=== PATIENT | female | born 1940 | race Caucasian/White ===

== ENCOUNTER 2016-05-15 11:10 | Emergency (ER) | payer MEDICARE, OTHER ==
[2016-05-15] MEDS ORDERED: CEPHALEXIN 250 MG CAPSULE PO STA (12:24)
[2016-05-15] MEDS ORDERED: CEPHALEXIN 250 MG CAPSULE PO ONE (12:33)
== END 2016-05-15 15:30 | disposition home or self-care (01) ==
DX: L03.115 Cellulitis of right lower limb (principal); Z85.42 Personal history of malignant neoplasm of other parts of uterus; I89.0 Lymphedema, not elsewhere classified; M19.90 Unspecified osteoarthritis, unspecified site
CPT/HCPCS: 93971; 99283; A9270

== ENCOUNTER 2016-07-22 12:05 | Outpatient (CLI) | payer MEDICARE, OTHER | END 2016-07-22 12:06 | disposition critical access hospital (66) | LOC: EMS 12:05 | PROVIDERS: ATTEND Surgery | DX: R10.9 Unspecified abdominal pain (principal) | CPT/HCPCS: A0425; A0427 ==

== ENCOUNTER 2016-07-22 12:39 | Emergency (ER) | payer MEDICARE, OTHER ==
[2016-07-22] MEDS ORDERED: SODIUM CHLORIDE 0.9% 1,000 ML IV ONE (12:58)
[2016-07-22] MEDS ORDERED: FAMOTIDINE 20 MG/50 ML 50 ML IV ONE (12:58)
[2016-07-22] MEDS ORDERED: FAMOTIDINE 20 MG/2 ML VIAL ONE (13:02)
--- NOTE | 2016-07-22 13:04 | ED Physician Documentation ---
History of Present Illness - Stated complaint Stated Complaint: ABD PX - Chief complaint Chief Complaint: Abd Pain - Additonal information Additional information: hx from pt 76 female hx uterine cancer s/p surgery chemo and radiation since tx ended last winter she developed cellulitis and was txed with antibiotics and since then has had diarrhea but over the last week she has had upper abd pain, some blood in diarrhea and change of odor now NV - per EMS looked like coffee grounds pt describes abd pain and a crescendo cramp she has seen PMD this week and stool sample collected and sent for c diff, rec simethicone and probitoic, pt has a CT and PET were ordered for this week but not done yet, pt has an appt with her oncologist Sunday after CT and PET sx worse today no fever CP cough Review of Systems Constitutional: denies: Fever, Chills Cardiac: denies: Chest pain / pressure Respiratory: denies: Dyspnea GI: reports: Abdominal Pain, Nausea, Vomiting, Diarrhea, Hematemesis, Bloody / black stool : reports: Hysterectomy. 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 Psych: Anxiety Musculoskeletal: Osteoporosis, Chronic back pain - Past Surgical History Past Surgical History: Yes /DIELECTRIC PRESS OPERATOR: Hysterectomy, Oophrectomy HEENT: Tonsil/Adenoidectomy Derm: Skin cancer surgery - Present Medications Home Medications: Ambulatory Orders Medication Instructions Recorded Confirmed Alprazolam 0.125 - 0.25 mg PO Q4H PRN 07/22/16 07/22/16 Dicyclomine [Bentyl] 10 mg PO Q6H PRN 07/22/16 07/22/16 Diphenoxylate HCl/Atropine 1 - 2 tab PO QID PRN 07/22/16 07/22/16 [Diphenoxylate-Atrop 2.5-0.025] Saccharomyces Boulardii [Florastor] 250 mg PO DAILY 07/22/16 Simethicone [Gas Relief] 125 mg PO QID PRN 07/22/16 07/22/16 - Allergies Allergies/Adverse Reactions: Allergies Allergy/AdvReac Type Severity Reaction Status Date / Time acetaminophen [From Tylenol] AdvReac Unknown Verified 07/22/16 12:47 elastic Allergy Unknown Uncoded 07/22/16 12:47 - Social History Does the pt smoke?: No Smoking Status: Never smoker Does the pt drink ETOH?: Yes Does the pt have substance abuse?: No - Immunizations Immunizations are current?: Yes - POLST Patient has POLST: No PD ED PE NORMAL - Vitals Vital signs reviewed: Yes - General General: Alert and oriented X 3 - HEENT HEENT: PERRL - Neck Neck: Supple, no meningeal sign - Cardiac Cardiac: RRR - Respiratory Respiratory: No respiratory distress, Clear bilaterally - Abdomen Abdomen: Soft, Other (TTP mid to upper abd no pulsatile mass, no lower abd TTP) - Derm Derm: Normal color - Neuro Neuro: Alert and oriented X 3 Results - Vitals Vitals: Vital Signs - 24 hr 07/22/16 07/22/16 07/22/16 12:40 14:45 15:44 Temperature 36.7 C Heart Rate 67 76 67 Respiratory 20 18 20 Rate Blood Pressure 136/71 H 146/85 H 141/58 H O2 Saturation 96 96 92 07/22/16 16:18 Temperature Heart Rate 75 Respiratory 20 Rate Blood Pressure 142/63 H O2 Saturation Oxygen O2 Source Room air - EKG (time done) 1308 Rate: Rate (enter#) Rhythm: NSR (64) Peerless: Normal Intervals: Normal NV Ischemia: Non specific changes - Labs Labs: Laboratory Tests 07/22/16 07/22/16 07/22/16 12:57 13:32 13:32 WBC 6.1 RBC 3.26 L Hgb 10.8 L Hct 31.5 L MCV 96.5 MCH 33.1 H MCHC 34.3 RDW 13.2 Plt Count 197 MPV 7.0 L Neut # 5.3 Lymph # 0.4 L [place] # 0.3 Eos # 0.0 Baso # 0.0 Absolute Nucleated RBC 0.00 Nucleated RBCs 0.0 Sodium 137 Potassium 3.7 Chloride 101 Carbon Dioxide 24 Anion Gap 12.0 BUN 15 Creatinine 0.7 Estimated GFR (MDRD) 81 L Glucose 122 H Calcium 9.2 Total Bilirubin 0.4 AST 21 ALT 14 Alkaline Phosphatase 66 Total Protein 6.7 Albumin 3.6 Globulin 3.1 Albumin/Globulin Ratio 1.2 Lipase 12 L Blood Type A POSITIVE Antibody Screen NEGATIVE - Rads (name of study) CT abd pelvis Radiology: See rad report (dilated colon to level of mid sigmoid where there is abrupt transition c/w large bowel obsturction, there is amorphous st density within region, ddx includes diffuse colonic thickening such as colitis or colon mass, fibrosis and or separate pelvic mass or fibrosis, trace ascites, mild to moderate bilateral hydro liekly 2/2 pelvic process, non calcified pulm nodules RLL, groundglass opacities RML ddx is atelectasis pneumonitis or infection) PD MEDICAL DECISION MAKING - ED course ED course: called clinic - no labs appear to have been ordered this week - no c diff result large bowel obstructions, possible due to recurrent mass, also could be inflammation 2/2 colitis such as c diff d/w surgeon Dr Stearns at [facility] and he feels pt should be trasnferred to [facility] where her oncology team is because with ascites and pulm nodules and possible mass on CT he suspects blockage is due to recurrent cancer and cannot be safely managed here at [facility] - see his consult called [facility] and spoke with Dr Blankenship who will accept pt in transfer - she req lactate (added on) NG tube (pt declines and stomach and small bowel decompressed on CT so unliekly to help), MPO IVF Departure - Departure Disposition: 02 Transfer Acute Care Hosp Clinical Impression: Intestinal obstruction Qualifiers: Intestinal obstruction type: unspecified Qualified Code(s): K56.60 - Unspecified intestinal obstruction Condition: Fair
[2016-07-22 13:34] LABS: ALBUMIN/GLOBULIN RATIO 1.2 (1.0-2.2); BILIRUBIN,TOTAL 0.4 mg/dL (0.2-1.0); CALCIUM 9.2 mg/dL (8.5-10.3); CREATININE 0.7 mg/dL (0.4-1.0); POTASSIUM 3.7 mmol/L (3.5-5.0); TOTAL PROTEIN 6.7 g/dL (6.7-8.2)
[2016-07-22 13:41] LABS: BASOPHILS % (AUTO) 0.4 %; HCT - HEMATOCRIT 31.5 % (37.0-47.0); HGB - HEMOGLOBIN 10.8 g/dL (12.0-16.0); LYMPHOCYTES # (AUTO) 0.4 10^3/uL (1.5-3.5); LYMPHOCYTES % (AUTO) 6.4 %; MEAN CORPUSCULAR HEMOGLOBIN 33.1 pg (27.0-31.0); MEAN CORPUSCULAR HGB CONC 34.3 g/dL (32.0-36.0); MEAN CORPUSCULAR VOLUME 96.5 fL (81.0-99.0); MONOCYTES # (AUTO) 0.3 10^3/uL (0.0-1.0); MONOCYTES % (AUTO) 5.3 %; NEUTROPHILS # (AUTO) 5.3 10^3/uL (1.5-6.6); NEUTROPHILS % (AUTO) 87.9 %; RED BLOOD COUNT 3.26 10^6/uL (4.20-5.40); RED CELL DISTRIBUTION WIDTH 13.2 % (12.0-15.0); UNCORRECTED WHITE BLOOD COUNT 6.1 x10^3/uL; WHITE BLOOD COUNT 6.1 x10^3/uL (4.8-10.8)
--- NOTE | 2016-07-22 14:45 | CT Preliminary Report ---
Exam: CT Abdomen/Pelvis W/O IMPRESSION: 1. Dilated colon to the level of the mid sigmoid where there is an abrupt transition consistent with a large bowel obstruction. There is somewhat amorphous soft tissue density within this region. Differ ential diagnosis includes diffuse colonic thickening such as from a severe colitis or colonic mass, f ibrosis and/or a separate pelvic mass with the given history of uterine cancer. 2. Trace ascites. 3. Mild to moderate bilateral hydronephrosis with transition in the pelvis, likely secondary to the p elvic process. 4. Non-calcified pulmonary nodules within the right lower lobe suspicious for metastatic disease in t his clinical setting. 5. Groundglass opacities in the right middle lobe. Differential diagnosis includes subsegmental atele ctasis, pneumonitis or infection. [facility] SITE ID: [id number]
--- NOTE | 2016-07-22 14:48 | CT Report ---
EXAM: CT ABDOMEN AND PELVIS EXAM DATE: 07/22/2016 01:55 PM. CLINICAL HISTORY: History of uterine cancer. Nausea and vomiting with mid upper abdominal pain. COMPARISONS: None. TECHNIQUE: Routine helical CT imaging was performed through the abdomen and pelvis. IV contrast: None . Enteric contrast: No. Reconstructions: Coronal and sagittal. In accordance with CT protocol optimization, one or more of the following dose reduction techniques w ere utilized for this exam: automated exposure control, adjustment of mA and/or KV based on patient s ize, or use of iterative reconstructive technique. FINDINGS: Lung Bases: Trace groundglass opacities within the right middle lobe. Multiple noncalcified pulmonary nodules within the right lower lobe, largest measuring 8 mm. Liver: Normal. No masses. Gallbladder/Bile Ducts: Unremarkable. Spleen: Normal. Pancreas: Moderate pancreatic atrophy. Adrenal Glands: Somewhat poorly defined without gross lesion. Kidneys: Right kidney is normal in contour with a 12 mm cyst. Mild to moderate right hydronephrosis. Mild to moderate left hydronephrosis extending to the level of the pelvis. Peritoneal Cavity/Bowel: Evaluation of the bowel is limited given the lack of intravenous or oral con trast. Stomach is decompressed and grossly unremarkable. The small bowel is decompressed with some jules rderline loops of distal small bowel and the pelvis which extends level of the ileocecal valve. The colon is markedly distended extending to the level of the pelvis where there is abrupt transition at the level of the mid sigmoid (3, 64). At this level there is diffuse soft tissue density which is somewhat poorly defined on this unenhanced examination. There is trace ascites. Pelvic Organs: The bladder is grossly unremarkable. Somewhat amorphous soft tissue density within the mid to left pelvis (3, 66). Vasculature: Atherosclerosis without abdominal aortic aneurysm. Bones: Degenerative disk disease lumbar spine. Other: Mild anasarca. IMPRESSION: 1. Dilated colon to the level of the mid sigmoid where there is an abrupt transition consistent with a large bowel obstruction. There is somewhat amorphous soft tissue density within this region. Differ ential diagnosis includes diffuse colonic thickening such as from a severe colitis or colonic mass, f ibrosis and/or a separate pelvic mass with the given history of uterine cancer. 2. Trace ascites. 3. Mild to moderate bilateral hydronephrosis with transition in the pelvis, likely secondary to the p elvic process. 4. Non-calcified pulmonary nodules within the right lower lobe suspicious for metastatic disease in t his clinical setting. 5. Groundglass opacities in the right middle lobe. Differential diagnosis includes subsegmental atele ctasis, pneumonitis or infection. [facility] Referring Provider Line: [phone] SITE ID: [id number]
[2016-07-22] MEDS ORDERED: HYDROmorphone 1 MG/ML SYRINGE IVP STA ×4 (14:49→18:58)
[2016-07-22] MEDS ORDERED: HYDROmorphone 1 MG/ML SYRINGE ONE ×3 (14:50→19:21)
[2016-07-22] MEDS ORDERED: D5.45NS W/20 MEQ KCL 1,000 ML IV SCH (19:00)
[2016-07-22 19:46] VITALS: BP 155/51
== END 2016-07-22 20:51 | disposition short-term general hospital (02) ==
LOC: EDUNIT# → ED 12:39
DX: K56.60 Unspecified intestinal obstruction (principal); Z85.42 Personal history of malignant neoplasm of other parts of uterus; Z92.21 Personal history of antineoplastic chemotherapy; Z92.3 Personal history of irradiation; Z90.710 Acquired absence of both cervix and uterus
CPT/HCPCS: 36415; 74176; 80053; 83605; 83690; 85025; 86850; 86900; 86901; 93005; 93010; 96374; 96375; 96376; 99284; J1170

== ENCOUNTER 2016-08-13 17:06 | Emergency (ER) | payer MEDICARE, OTHER ==
[2016-08-13 17:13] VITALS: BP 144/59
--- NOTE | 2016-08-13 17:24 | ED Physician Documentation ---
History of Present Illness - Stated complaint Stated Complaint: FEMALE - Chief complaint Chief Complaint: General - History obtained from History obtained from: Patient (She has known endometrial cancer and recently had bowel obstruction with surgery and left-sided ostomy placement. 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: Hysterectomy, Oophrectomy HEENT: Tonsil/Adenoidectomy Derm: Skin cancer surgery - Present Medications Home Medications: Ambulatory Orders Medication Instructions Recorded Confirmed Alprazolam 0.125 - 0.25 mg PO Q4H PRN 07/22/16 08/13/16 Dicyclomine [Bentyl] 10 mg PO Q6H PRN 07/22/16 08/13/16 Diphenoxylate HCl/Atropine 1 - 2 tab PO QID PRN 07/22/16 08/13/16 [Diphenoxylate-Atrop 2.5-0.025] Saccharomyces Boulardii [Florastor] 250 mg PO DAILY 07/22/16 08/13/16 Simethicone [Gas Relief] 125 mg PO QID PRN 07/22/16 08/13/16 oxyCODONE ER [OxyCONTIN] 5 mg PO DAILY 08/13/16 08/13/16 - Allergies Allergies/Adverse Reactions: Allergies Allergy/AdvReac Type Severity Reaction Status Date / Time acetaminophen [From Tylenol] AdvReac Unknown Verified 07/22/16 12:47 elastic Allergy Unknown Uncoded 07/22/16 12:47 - Social History Does the pt smoke?: No Smoking Status: Never smoker Does the pt drink ETOH?: Yes Does the pt have substance abuse?: No - Immunizations Immunizations are current?: Yes - POLST Patient has POLST: No PD ED PE NORMAL - Vitals Vital signs reviewed: Yes - General General: Alert and oriented X 3, No acute distress - Abdomen Abdomen: Soft, Non tender, Other (Left-sided colostomy, the stoma looks fine, the appliance is a little dehisced on the left side with some leakage.) - Back Back: No CVA TTP, No spinal TTP - Neuro Neuro: Alert and oriented X 3, Normal speech - Psych Psych: Normal mood, Normal affect Results - Vitals Vitals: Vital Signs - 24 hr 08/13/16 17:11 Temperature 36.6 C Heart Rate 76 Respiratory 16 Rate Blood Pressure 144/59 H O2 Saturation 97 Oxygen O2 Source Room air PD MEDICAL DECISION MAKING - ED course ED course: RN replaced the appliance Departure - Departure Disposition: 01 Home, Self Care Clinical Impression: Complication of ostomy Condition: Good Record reviewed to determine appropriate education?: Yes Instructions: Ostomy Pouch Change Dc Comments: Your blood pressure was elevated today on check into the emergency department. This does not mean that you have hypertension, it is a common phenomenon to come to the emergency department and have elevated blood pressure. I recommend that she see her primary care physician within the week to have it rechecked when you are feeling better.
== END 2016-08-13 17:54 | disposition home or self-care (01) ==
LOC: ED 17:06
DX: K94.09 Other complications of colostomy (principal); R03.0 Elevated blood-pressure reading, without diagnosis of hypertension; Z85.89 Personal history of malignant neoplasm of other organs and systems
CPT/HCPCS: 99282; 99283

== ENCOUNTER 2016-08-18 14:36 | Outpatient (CLI) | payer MEDICARE, OTHER ==
[2016-08-18 14:54] LABS: BASOPHILS % (AUTO) 0.7 %; EOSINOPHILS # (AUTO) 0.2 10^3/uL (0.0-0.7); EOSINOPHILS % (AUTO) 5.3 %; HCT - HEMATOCRIT 28.8 % (37.0-47.0); HGB - HEMOGLOBIN 9.7 g/dL (12.0-16.0); LYMPHOCYTES # (AUTO) 0.6 10^3/uL (1.5-3.5); LYMPHOCYTES % (AUTO) 14.6 %; MEAN CORPUSCULAR HEMOGLOBIN 32.4 pg (27.0-31.0); MEAN CORPUSCULAR HGB CONC 33.8 g/dL (32.0-36.0); MEAN CORPUSCULAR VOLUME 95.9 fL (81.0-99.0); MEAN PLATELET VOLUME 6.7 fL (7.9-10.8); MONOCYTES # (AUTO) 0.5 10^3/uL (0.0-1.0); MONOCYTES % (AUTO) 11.9 %; NEUTROPHILS % (AUTO) 67.5 %; NUCLEATED RED BLOOD CELLS AUTO 0.1 /100WBC; RED CELL DISTRIBUTION WIDTH 13.8 % (12.0-15.0); UNCORRECTED WHITE BLOOD COUNT 4.4 x10^3/uL; WHITE BLOOD COUNT 4.4 x10^3/uL (4.8-10.8)
[2016-08-18 15:22] LABS: ALBUMIN/GLOBULIN RATIO 0.9 (1.0-2.2); BILIRUBIN,TOTAL 0.4 mg/dL (0.2-1.0); BUN - BLOOD UREA NITROGEN 10 mg/dL (6-20); CALCIUM 8.8 mg/dL (8.5-10.3); CARBON DIOXIDE - CO2 32 mmol/L (21-32); CHLORIDE 98 mmol/L (101-111); CREATININE 0.9 mg/dL (0.4-1.0); GFR - MDRD 61 (>89); GLUCOSE 122 mg/dL (70-100); POTASSIUM 3.4 mmol/L (3.5-5.0); SODIUM 137 mmol/L (135-145); TOTAL PROTEIN 6.7 g/dL (6.7-8.2)
== END 2016-08-18 14:37 | disposition home or self-care (01) ==
LOC: LAB 14:36
PROVIDERS: ATTEND Obstetrics & Gynecology
DX: C54.9 Malignant neoplasm of corpus uteri, unspecified (principal); R91.1 Solitary pulmonary nodule
CPT/HCPCS: 36415; 80053; 85025; 86304

== ENCOUNTER 2016-08-21 10:45 | Outpatient (CLI) | payer MEDICARE, OTHER ==
--- NOTE | 2016-08-21 23:27 | CONSULTATION NOTE ---
Palliative Care Consultation - Referral Referring Provider: Nallely Campos PA-C Time of Visit: 10:45-12:15 Referral setting: Home (Patient seen in her home setting secondary to it is a considerable and taxing effort to leave the home, to evaluate symptom burden in context of home setting and facilitate family conference.) Referral Reason: Depression - Information Sources Records Reviewed: RN notes reviewed, Old records reviewed Exam limitations: Clinical condition (patient presents with anxiety and depressed mood) - History of Present Illness Brief History of Present Illness: This is a 76 year old woman with endometrial cancer diagnosed last year, underwent a hysterectomy/BSO and omental biopsy, she underwent 6 cycles of carbo /taxol which she tolerated fairly well with residual neuropathy. She then underwent radiation which was much more difficult with her with severe diarrhea and fatigue. She had persistent diarrhea and lymphadema at that time only on right leg. She completed her radiation in February. She also has know lung mets. Has been in survellience, and due to have scans this last month, but in meantime developed severe pain and presented with large bowel obstruction for which she had surgery with mini-lap including a diverting loop colostomy. She also has bilat. hyronephrosis. She had an infiltrating mass in the left hemipelvis causing infiltration/encasement of sigmoid colon. She had 750 mls of ascitic fluid. She was hospitalized at [facility] 07/22-07/27. She has had a slow recovery including distress with new colostomy management, fatigue, development of bilateral lower extremity lymphadema, anorexia, exacerbation of anxiety and fatigue. She does understand she has limited life expectancy, is expecting to receive Avastin, but is overwhelmed with implications and her ongoing functional decline. 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: Uterine cancer : reports: Incontinence, Frequency (with initiation of furosemide) HEENT: reports: Chronic hearing loss Psych: reports: Depression, Anxiety Musculoskeletal: reports: Osteoporosis, Chronic back pain Derm: reports: Other (recent surgical incision) MRSA Hx?: No - Past Surgical History /PLUG AND MOLD FINISHER: reports: Hysterectomy, Oophrectomy, Other (colostomy) HEENT: reports: Tonsil/Adenoidectomy Derm: reports: Skin cancer surgery - Substance History Use: Uses substance without health or social issues: Alcohol (daily glass of wine) Social History - Living Situation Living arrangement: At home Living Situation: With spouse/s.o. Support System: Has many support components of team, has weekly counseling, massage, has had accupuncture, has two daughter. Is supported by [facility], and currently HH for colostomy teaching and support. Family History - Family History Family History: Mother: (mother at 66 from intestinal cancer), Father: Family History Comment/Other: lost sibling in accident at age 7 Medications/Allergies - Medications Home Medications: Ambulatory Orders Medication Instructions Recorded Confirmed Alprazolam 0.125 - 0.25 mg PO TID PRN 07/22/16 08/21/16 Furosemide 20 mg PO DAILY 08/21/16 08/21/16 Loperamide [Imodium] 2 mg PO Q4HR PRN MDD 16 mg 08/21/16 08/21/16 Mirtazapine 7.5 mg PO DAILY 08/21/16 08/21/16 Ondansetron HCl [Zofran] 8 mg PO TID PRN 08/21/16 08/21/16 Potassium Chloride 20 meq PO DAILY 08/21/16 08/21/16 Prochlorperazine Maleate 10 mg PO Q6HR PRN 08/21/16 08/21/16 [Compazine] oxyCODONE [Roxicodone] 5 mg PO Q4HR PRN MDD 20 mg 08/21/16 08/21/16 - Allergies Allergies/Adverse Reactions: Allergies Allergy/AdvReac Type Severity Reaction Status Date / Time acetaminophen [From Tylenol] AdvReac Unknown Verified 07/22/16 12:47 elastic Allergy Unknown Uncoded 07/22/16 12:47 Review of Systems - Constitutional Constitutional: reports: Fatigue, Weakness, Poor appetite, Weight loss - Eyes Eyes: denies: Corrective lenses - Ears, Nose & Throat Ears, Nose & Throat: reports: Hearing loss, Hearing aids - Cardiovascular Cariovascular: reports: Decr. exercise tolerance. denies: Chest pain - Respiratory Respiratory: reports: SOB with exertion. 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) - Psychiatric Psychiatric: reports: Depression, Anxiety - Endocrine Endocrine: reports: Intolerance to cold - Hematologic/Lymphatic Hematologic/Lymphatic: reports: Anemia - All Other Systems All Other Systems: reports: Other (patient with lymphadema on right from first dx., now bilateraly and severely limiting) Physical Examination - Vital Signs Temperature: 97.4 C Pulse Rate: 66 Respiratory Rate: 16 O2 Saturation: 96 (RA at rest) Blood Pressure: 132/76 - Physical Exam General Appearance: positive: Mild distress, Anxious, Cachetic Eyes Bilateral: positive: Normal inspection ENT: positive: Dry mucous membranes Neck: positive: Trachea midline Respiratory: positive: Breath sounds nml Cardiovascular: positive: Regular rate & rhythm Abdomen: positive: Non-tender, Nml bowel sounds, Other (taut lymphadema/ swelling in lower abdominal area; stoma with slight swelling rising about 1.5 inches into the pouch, pink and good circulation, moist). negative: No distention Skin: positive: Pallor, Dryness Extremities: positive: Pedal edema (taut lower extremety edema extending up into thigh) Neurologic/Psychiatric: positive: Oriented x3, Weakness, Depressed mood/affect Palliative Care - POLST Patient has POLST: No Pain: Pain improved, Location (lower abdominal area), Severity (mild), Pattern ( persistent, does feel oxycodone wearing off at 4-5 hours) Drowsiness: Mild (1-3) (complains more of severe fatigue, fluctuating energy levels) Nausea: None Anxiety: Severe (7-10) (Describes as "nervous condition", butterflies in stomach , has longstanding history with anxiety but has exacerbated over last several weeks) Dyspnea: Mild (1-3) (with exertion) Anorexia: Moderate (4-6), Weight loss (Reports some early satiety, does not feel like eating) Insomnia: Sleeps well Constipation: No Feelings of wellbeing/Perceived Quality of Life: Worsening Performance Status: Previous level of function prior to this episode [patient had some functional decline, but independent in adls]. Current level of functioning [Fatgues easily , receiving some support with bathing, endurance is impacted]. Palliative Care Performance Status [60%]. - Palliative Care Discussion: Surrogate decision maker []. Patient/Family understanding of the illness [patient understanding limited life expectancy with 2-5 months, after chemotherapy if effective extended several months]. Information preferences [ Patient very anxious, unclear best approach]. Most important goals [Patient trying to define]. Patient/Family concerns [ concerned patient giving up before really has given post surgery time]. Family conference [Very much (both) wanting to tell their story, discussed because of list of concerns will address advanced care directives at tnext visit. Addressed questions regarding hospice, reviewed if in active treatment this is not congruent with hospice philosophy, but the role of palliative care is to support them during this time of active treatment until either by choice or by disease time to transfer to hospice. Patient's goal to address her current perception of very poor QOL, and emotions of being scared around dying.]. Results - Lab Results Lab results reviewed: Yes Lab and Imaging Results: Potassium 3.4 Impression and Recommendations - Palliative Care Impression: This is a 76 year old woman with newly recurrent endometrial cancer resulting in a large bowel obstruction secondary to mass, lung nodules probably mets, and functional decline. She has high symptom burden including lymphadema bilat/ abdominal, anxiety, depression and pain. She has adequate social support, but exhibiting caregiver fatigue. Goal to improve nurtitional/functional status to tolerate avastin. Recommendations/Counseling Done: 1. Pain of neoplastic origin, located lower pelvic area, controlled with current regimen of oxycodone 5 mg 4 x day. Unclear of pain acute in nature as well from surgery, if remains persistent in nature would recommend transitioning to Fentanyl 12 mcg daily, will see how she does over these next few weeks. Rx for oxycodone written. 2. Depression. Patient very "scared" and with persistant feelings of helplessness and hopelessness. Discussed different possibilities, with anorexia/ weight loss, will start her on mirtazipine 15 mg 1/2 tab daily and increase to one tab if tolerated after one week. Has counselor sees on weekly basis. 3. Generalized anxiety disorder poorly controlled. Hoping in addressing depression may be of help. Uses alprazalom 1-2 times a a day with good relief. Education on anxiety disorder provided to patient per request. 4. Lymphadema, LE/abdominal. Has been to [facility] for managment of right leg. has a variety of pressure stockings, remain either anxious or confused as "what to do". Spoke to [facility], can see her at least once, with many other things going on may be enough though focal point of patient 's distress. Has capped out her PT benefits with lympadema program. In meantime has been instructed to use whatever compression she can tolerate and what can get on, agreed. Very much doubt diuretic is going to be of help, agreed to try one more week, will have HH nurse measure and weigh this week before discontinuing though does not like the incontinence it has causeed. 5. Advanced Care Planning, has some very extensive documents filled out several years ago, now that she has a terminal dx has many misgivings and questions. Agreed to defer further conversation until next visit. Did address questions related to DWD and hospice. Patient current goals are hoping to be able to get strong enough to tolerate targeted therapy. Agreed to facilitate follow up with navigator as had gotten confuse. Time Spent: 90 minutes with greater than 50% done in counseling for pain/anxiety/depression and coordination of care with HH/MAC.
== END 2016-08-21 10:46 | disposition home or self-care (01) ==
LOC: PC 10:45
PROVIDERS: ATTEND Nurse Practitioner Adult Health
DX: Z51.5 Encounter for palliative care (principal); G89.3 Neoplasm related pain (acute) (chronic); F32.9 Major depressive disorder, single episode, unspecified; F41.1 Generalized anxiety disorder; I89.0 Lymphedema, not elsewhere classified; C54.1 Malignant neoplasm of endometrium; R91.8 Other nonspecific abnormal finding of lung field; G62.9 Polyneuropathy, unspecified; T45.1X5D Adverse effect of antineoplastic and immunosuppressive drugs, subsequent encounter; Z79.891 Long term (current) use of opiate analgesic; Z93.3 Colostomy status; Z85.828 Personal history of other malignant neoplasm of skin; Z95.828 Presence of other vascular implants and grafts; Z92.3 Personal history of irradiation
CPT/HCPCS: 99345

== ENCOUNTER 2016-08-29 16:15 | Outpatient (CLI) | payer MEDICARE, OTHER ==
--- NOTE | 2016-08-29 20:23 | PROVIDER PROGRESS NOTE ---
Palliative Care Follow Up - Referral Referring Provider: Denice Campos PA-C Time of Visit: 2380-2457 Referral setting: Home (Patient seen in her home setting secondary it is a taxing and considerable effort for her to leave the home and to facilitate family conference and treatment plan.) Referral Reason: Metastatic endometrial cancer - Information Sources Records Reviewed: RN notes reviewed History obtained from: Patient, Family ( Jf, takes good notes and recall) Exam limitations: Clinical condition (Patient with some STM issues, but improved from last visit) - History of Present Illness Update Brief HPI Update: This is a 76 yeaer old woman with metastatic endometrial cancer with lung mets. Most recently she was hospitalized with the bowel obstruction, for which she had debulking surgery to include a diverting loop colostomy. She is about 4 weeks post-op, remains quite frail but improving. She understands she has limited life expectancy and is anxiously waiting on seeing Dr. Araujo next week for possible treatment with Avastin. Her most distressing symptom for her his the lymphadema, bilaterally up into the lower pelvic region as well. She was fairly overwhelmed last visit, appears improved today, voice modulated, ambulating up and down the stairs, engaging in the discussion and seems more interested in having a say in her approach to managing symptoms. Her pain is 2/ 10 dull and not distressful, anxiety remains problematic but improved, continues with depressive symptoms but appears to be responding to mirtazipine, has early satiety and anorexia but improved, but most distressing symptom is her "lethargy". Social History - Living Situation Living arrangement: At home Living Situation: With spouse/s.o. Support System: Many supportive friends and family, appears exhausted with caregiver fatigue and distress with managing care. Medications/Allergies - Medications Home Medications: Ambulatory Orders Medication Instructions Recorded Confirmed Alprazolam 0.125 - 0.25 mg PO TID PRN 07/22/16 08/29/16 Loperamide [Imodium] 2 mg PO Q4HR PRN MDD 16 mg 08/21/16 08/29/16 Mirtazapine 15 mg PO ACHS 08/21/16 08/29/16 Ondansetron HCl [Zofran] 8 mg PO TID PRN 08/21/16 08/29/16 Prochlorperazine Maleate 10 mg PO Q6HR PRN 08/21/16 08/29/16 [Compazine] oxyCODONE [Roxicodone] 5 mg PO Q4HR PRN MDD 20 mg 08/21/16 08/29/16 - Allergies Allergies/Adverse Reactions: Allergies Allergy/AdvReac Type Severity Reaction Status Date / Time acetaminophen [From Tylenol] AdvReac Unknown Verified 07/22/16 12:47 elastic Allergy Unknown Uncoded 07/22/16 12:47 Review of Systems - Constitutional Constitutional: reports: Fatigue (Describes specifically as lethargy), Weakness , Poor appetite, Weight loss (107 per RN this am) - Eyes Eyes: denies: Pain, Vision loss - Ears, Nose & Throat Ears, Nose & Throat: reports: Hearing loss - Cardiovascular Cariovascular: reports: Edema (Patient actually with lymphadema, did not like nor respond to diuretics, discontinued on own), Decr. exercise tolerance. denies: Chest pain - Respiratory Respiratory: reports: SOB with exertion. denies: Cough, Wheezing, SOB at rest - Gastrointestinal Gastrointestinal: reports: Poor appetite (describe early satiety "squeamishness " no vomiting, less output times 24 hours, starting. Has colostomy). 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 Has lower abdominal swelling, lymphatic in appearance as well.). denies: Blood clots, Recurrent infections - All Other Systems All Other Systems: reports: Reviewed and negative Physical Examination - Vital Signs Temperature: 98.9 C Pulse Rate: 72 Respiratory Rate: 18 Blood Pressure: 114/58 - Physical Exam General Appearance: positive: Mild distress, Anxious, Cachetic Eyes Bilateral: positive: Normal inspection ENT: positive: No signs of dehydration. negative: Oral lesions Neck: positive: Trachea midline Respiratory: positive: Breath sounds nml Cardiovascular: positive: Regular rate & rhythm Abdomen: positive: Nml bowel sounds, Other (colostomy, mild swelling lower abd) Skin: positive: Pallor, Dryness Extremities: positive: Pedal edema (Bilat lymphadema, some improvement though no change in measurements, taut. Cont difficulty with getting compression on) Neurologic/Psychiatric: positive: Oriented x3, Depressed mood/affect (improved from last visit, making eye contact, engaged, voice modulated) Palliative Care - POLST Patient has POLST: No Pain: Pain improved, Location (in lower pelvic region, diffuse, some discomfort with LE edema), Severity (2/10 at worst, has not escalated, when "late" or longer periods between pills not noting escalating pain. Occ. sharp shooting every few days), Pattern (dull and persistant but not awakening at night, greatest discomfort in am when getting going. Has been doing ATC dosing) Drowsiness: Comment (Describes baseline "lethargy" with low energy, doesn't describe as sedation, would like to address this as most problematic in her description) Nausea: Mild (1-3) ("squeamish" more noted after eating, escalated with management of colostomy) Anxiety: Moderate (4-6) (this is related to overwhelming feeling of facing unknown, decline, nightmares about dying, worried about poor quality of life. Taking alprazalom in am with some relief.) Dyspnea: None Anorexia: Moderate (4-6), Weight loss (doesn't feel like eating, early satiety. 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 Created a significant amount of tension between the two of them now with eating) Insomnia: Sleeps well Constipation: Yes, Opoid induced, Unmanaged (colostomy with no output for 24 hours, now starting to move) Feelings of wellbeing/Perceived Quality of Life: No change (Continues to feel QOL distressful, struggling with moving forward and approach to take) Performance Status: Patient appears stronger, is ambulating around house including the stairs with minimal difficulty. Was able to get out in garden yesterday. Fatigues easily. Needing assistance in shower for safety. managing IADLs with some hired assistance. Palliative Care Performance at 60%. - Palliative Care Discussion: Patient expressing concern about how to focus goals, if her current QOL is not going to improve, wondering if it is worth is moving forward. The unknown does seem to be quite distressing and difficult to manage in the context of this "waiting time". Starting to feel a little better, but theme expressed of helplessness. distressed when patient expressed feelings of dismay, he very much wants her to live as long as she can, and appears feels somewhat responsible for managing her care in the context of this and causes some tension between them. Spent time with counseling regarding living in the uncertainty of serious illness, hoping for the best, but acknowledging does have life limiting disease, and very difficult when unknown outcome related to this as far as the when, not the if. Results - Lab Results Lab results reviewed: Yes Lab and Imaging Results: CA 125 187.7; K 3.4; Impression and Recommendations - Palliative Care Impression: This is a 76 year old woman with metastatic endometrial cancer with lung mets, s /p LBO now with diverting loop colostomy, presents with high symptom burden and perceived low quality of life. Goals are to focus on improving symptoms, extending quantity with further treatment support, and address advanced care planning issues. Recommendations/Counseling Done: 1. Depression. Last couple of days experiencing some improvement attributing to mirtazipine with increase intake, more engaged and less intensity of hopelessness, though helplessness persists. Is getting weekly counseling support that she finds helpful. Due to increase to full tab 15 mg tonight, has not had any untoward effect. Counseling provided regarding benefits of medication for depression, sleep, and appetite. 2. Pain of neoplastic origin. Patient with dull persistent pain, does not escalate and is probably improving. Does get "relief" or increased comfort but does not get distress or increase "pain" if prolonged period in ATC dosing. Given patient's greatest distress with lethargy, recommended AM dosing, but use as needed and see if healing from surgery improved baseline pain. If needs 4-5 oxycodone tabs/24 hours can consider fentanyl patch but will hold off for now. 3. Fatigue mutlifactorial in origin. Patient describes feeling as "lethargy" would like to feel more energetic,A Reviewed medications, encouraged activity as tolerated, and engaging in pleasurable activities, inst. on pacing given limited reserve at this time 4.Anorexia. Very distressed with appt. with psychiatric assistant, caught up in protien numbers, calories needed and feeling more burdened. Patient is starting to eat more, unclear why limitations perceived on diet for colostomy, will follow up with [facility]. Counseling to refocus on high calorie foods, add to small portions high calorie content, and more frequent small feeding. Does not want to do "ensure" but willing to push self more. Addressed multiple questions regarding marijuana etc. given patient's underlying anxiety and concern for lethargy, requested focus on mirtazipine for now, patient dislikes "pills" and altered feeling 5. Constipation. Inst. with opiod use most likely will need ongoing bowel medication, inst to start with Miralax 1/2 capful daily. 6. Anxiety. Reviewed cycle and pattern, counseled to continue am dosing, not at night, if escalating anxiety take 1/2-1 tab in afternoon. 7. Lymphadema. Did not get response from diuretics, and stopped, in agreement most likely is not of benefit. Encouraged as able to get compression on, GRISELDA hose still too tight for patient to manage independently. Suggested just mild support hose on days caregiver not available to assist. 8. Advanced Care Planning. Counseling for normalizing current feelings of distress, grief and loss. Time spent exploring patient goals regarding quality of life and acceptable threshold to continue. Expecting treatment plan next week , will follow up further on themes next visit.. Time Spent: Time spent 90 minutes with greater than 50 % spent on multiple concerns and issue related to pain/depression/anxiety/anorexia and anticipatory guidance
== END 2016-08-29 16:16 | disposition home or self-care (01) ==
LOC: PC 16:15
PROVIDERS: ATTEND Nurse Practitioner Adult Health
DX: Z51.5 Encounter for palliative care (principal); F32.9 Major depressive disorder, single episode, unspecified; G89.3 Neoplasm related pain (acute) (chronic); C78.00 Secondary malignant neoplasm of unspecified lung; R63.0 Anorexia; K59.00 Constipation, unspecified; F41.9 Anxiety disorder, unspecified; I89.0 Lymphedema, not elsewhere classified; H91.90 Unspecified hearing loss, unspecified ear; Z93.3 Colostomy status; R68.81 Early satiety; Z79.891 Long term (current) use of opiate analgesic; R53.1 Weakness; R60.9 Edema, unspecified; R06.09 Other forms of dyspnea; R39.15 Urgency of urination; R32 Unspecified urinary incontinence; R11.0 Nausea
CPT/HCPCS: 99350

== ENCOUNTER 2016-09-01 11:51 | Emergency (ER) | payer MEDICARE, OTHER ==
--- NOTE | 2016-09-01 12:26 | ED Physician Documentation ---
History of Present Illness - Stated complaint Stated Complaint: ABD PX - Chief complaint Chief Complaint: Abd Pain - History obtained from History obtained from: Patient - History of Present Illness Timing: Today Pain level max: 7 Pain level now: 5 Improved by: nothing Worsened by: trying to reduce stoma - Additonal information Additional information: Patient is a 76-year-old female has a history of endometrial cancer, small bowel obstruction and cancer found in the omentum. She is now status post an ostomy. Home health noted that she had approximately 12 cm of intestines prolapsed through her ostomy today. Sent in for evaluation. Last PO intake was 929. Review of Systems Constitutional: denies: Fever, Chills Nose: denies: Rhinorrhea / runny nose, Congestion GI: reports: Abdominal Pain (pain started after home health tried to reduce the ostomy). 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 to pelvis/large bowel obstruction) CORE PASTER: Uterine cancer : Incontinence, Frequency (with initiation of furosemide) HEENT: Chronic hearing loss Psych: Depression, Anxiety Musculoskeletal: Osteoporosis, Chronic back pain Derm: Other (recent surgical incision) - Past Surgical History Past Surgical History: Yes /CORE PASTER: Hysterectomy, Oophrectomy, Other (colostomy) HEENT: Tonsil/Adenoidectomy Derm: Skin cancer surgery - Present Medications Home Medications: Ambulatory Orders Medication Instructions Recorded Confirmed Alprazolam 0.125 - 0.25 mg PO TID PRN 07/22/16 09/01/16 Loperamide [Imodium] 2 mg PO Q4HR PRN MDD 16 mg 08/21/16 09/01/16 Mirtazapine 15 mg PO ACHS 08/21/16 09/01/16 Ondansetron HCl [Zofran] 8 mg PO TID PRN 08/21/16 09/01/16 Prochlorperazine Maleate 10 mg PO Q6HR PRN 08/21/16 09/01/16 [Compazine] oxyCODONE [Roxicodone] 5 mg PO Q4HR PRN MDD 20 mg 08/21/16 09/01/16 - Allergies Allergies/Adverse Reactions: Allergies Allergy/AdvReac Type Severity Reaction Status Date / Time acetaminophen [From Tylenol] AdvReac Unknown Verified 09/01/16 12:22 elastic Allergy Unknown Uncoded 09/01/16 12:22 - Social History Does the pt smoke?: No Smoking Status: Never smoker Does the pt drink ETOH?: Yes Does the pt have substance abuse?: No - Immunizations Immunizations are current?: Yes - POLST Patient has POLST: No PD ED PE NORMAL - Vitals Vital signs reviewed: Yes - General General: Alert and oriented X 3, No acute distress - HEENT HEENT: Moist mucous membranes - Neck Neck: Supple, no meningeal sign - Cardiac Cardiac: RRR - Respiratory Respiratory: No respiratory distress, Clear bilaterally - Abdomen Abdomen: Soft, Other (intestinal prolapse of approx 12-15cm through her stoma. dark red. ) - Derm Derm: Warm and dry - Neuro Neuro: Alert and oriented X 3 - Psych Psych: Normal mood, Normal affect Results - Vitals Vitals: Vital Signs - 24 hr 09/01/16 09/01/16 09/01/16 11:55 13:47 15:10 Temperature 36.6 C 36.8 C Heart Rate 76 70 70 Respiratory 20 17 18 Rate Blood Pressure 176/80 H 172/78 H 169/80 H O2 Saturation 95 96 96 Oxygen O2 Source Room air - Labs Labs: Laboratory Tests 09/01/16 09/01/16 09/01/16 13:00 13:00 13:00 WBC 5.8 RBC 2.95 L Hgb 9.5 L Hct 28.0 L MCV 94.7 MCH 32.1 H MCHC 33.9 RDW 13.5 Plt Count 227 MPV 6.8 L Neut # 4.7 Lymph # 0.5 L Graham # 0.4 Eos # 0.1 Baso # 0.1 Absolute Nucleated RBC 0.00 Nucleated RBCs 0.0 Sodium 136 Potassium 3.4 L Chloride 99 L Carbon Dioxide 29 Anion Gap 8.0 BUN 9 Creatinine 0.9 Estimated GFR (MDRD) 61 L Glucose 107 H Lactic Acid 0.7 Calcium 8.8 Total Bilirubin 0.6 AST 15 ALT < 10 L Alkaline Phosphatase 64 Total Protein 6.3 L Albumin 2.8 L Globulin 3.5 Albumin/Globulin Ratio 0.8 L Lipase < 10 L PD MEDICAL DECISION MAKING - ED course Complexity details: reviewed old records, reviewed results, re-evaluated patient , considered differential, d/w patient, d/w family, d/w medical economics consultant ED course: Call placed to Dr. Klein at 1240. Dr. Klein saw the pt at 1310 and pt wants to be transferred to . Unable to reduce prolapse here. [facility] call placed at 1315. 1420 - Dr. Schreiber (muffle worker onc) accepts in transfer to the ED. Pt transferred. Pain well controlled. Patient is well-appearing, nontoxic. Afebrile. Normal lactate. This document was made in part using voice recognition software. While efforts are made to proofread this document, sound alike and grammatical errors may occur. Departure - Departure Disposition: 02 Transfer Acute Care Hosp Clinical Impression: Intestinal stoma prolapse Condition: Stable Discharge Date/Time: 09/01/16 15:15
[2016-09-01] MEDS ORDERED: ONDANSETRON 4 MG/2 ML VIAL IVP STA (12:46)
[2016-09-01] MEDS ORDERED: SODIUM CHLORIDE 0.9% 1,000 ML IV ONE (12:46)
[2016-09-01 13:06] LABS: BASOPHILS # (AUTO) 0.1 10^3/uL (0.0-0.1); BASOPHILS % (AUTO) 1.2 %; EOSINOPHILS # (AUTO) 0.1 10^3/uL (0.0-0.7); EOSINOPHILS % (AUTO) 1.5 %; HGB - HEMOGLOBIN 9.5 g/dL (12.0-16.0); LYMPHOCYTES # (AUTO) 0.5 10^3/uL (1.5-3.5); LYMPHOCYTES % (AUTO) 8.2 %; MEAN CORPUSCULAR HEMOGLOBIN 32.1 pg (27.0-31.0); MEAN CORPUSCULAR HGB CONC 33.9 g/dL (32.0-36.0); MEAN CORPUSCULAR VOLUME 94.7 fL (81.0-99.0); MEAN PLATELET VOLUME 6.8 fL (7.9-10.8); MONOCYTES # (AUTO) 0.4 10^3/uL (0.0-1.0); NEUTROPHILS # (AUTO) 4.7 10^3/uL (1.5-6.6); NEUTROPHILS % (AUTO) 82.1 %; RED BLOOD COUNT 2.95 10^6/uL (4.20-5.40); RED CELL DISTRIBUTION WIDTH 13.5 % (12.0-15.0); UNCORRECTED WHITE BLOOD COUNT 5.8 x10^3/uL; WHITE BLOOD COUNT 5.8 x10^3/uL (4.8-10.8)
[2016-09-01] MEDS ORDERED: ONDANSETRON 4 MG/2 ML VIAL ONE (13:09)
[2016-09-01] MEDS ORDERED: HYDROmorphone 1 MG/ML SYRINGE ONE ×2 (13:09→14:50)
[2016-09-01] MEDS: HYDROmorphone 1 MG/ML SYRINGE IVP STA ×2 (13:10→13:11)
[2016-09-01 13:27] LABS: ALBUMIN/GLOBULIN RATIO 0.8 (1.0-2.2); BILIRUBIN,TOTAL 0.6 mg/dL (0.2-1.0); BUN - BLOOD UREA NITROGEN 9 mg/dL (6-20); CALCIUM 8.8 mg/dL (8.5-10.3); CARBON DIOXIDE - CO2 29 mmol/L (21-32); CHLORIDE 99 mmol/L (101-111); CREATININE 0.9 mg/dL (0.4-1.0); GFR - MDRD 61 (>89); GLUCOSE 107 mg/dL (70-100); POTASSIUM 3.4 mmol/L (3.5-5.0); SODIUM 136 mmol/L (135-145); TOTAL PROTEIN 6.3 g/dL (6.7-8.2)
[2016-09-01 13:30] LABS: LIPASE < 10 U/L (22-51)
[2016-09-01] MEDS ORDERED: HYDROmorphone 1 MG/ML SYRINGE IVP STA (14:32)
[2016-09-01 15:29] VITALS: BP 169/80
[2016-09-01] MEDS ORDERED: DEXAMETHASONE 10 MG/ML VIAL ONE (16:43)
[2016-09-01] MEDS ORDERED: KETOROLAC 60 MG/2 ML VIAL ONE (16:43)
[2016-09-01] MEDS ORDERED: CHERRY SYRUP 10 ML UDC PO ONE (16:44)
== END 2016-09-01 15:15 | disposition short-term general hospital (02) ==
LOC: ED 11:51
DX: K94.03 Colostomy malfunction (principal); K63.4 Enteroptosis; Z85.42 Personal history of malignant neoplasm of other parts of uterus
CPT/HCPCS: 36415; 80053; 83605; 83690; 85025; 96361; 96374; 96375; 96376; 99284; A9270; J1170

== ENCOUNTER 2016-09-01 15:15 | Outpatient (CLI) | payer MEDICARE, OTHER | END 2016-09-01 15:16 | disposition short-term general hospital (02) | LOC: EMS 15:15 | PROVIDERS: ATTEND Surgery | DX: K63.4 Enteroptosis (principal) | CPT/HCPCS: A0170; A0425; A0426 ==

== ENCOUNTER 2016-09-13 09:45 | Outpatient (CLI) | payer MEDICARE, OTHER ==
--- NOTE | 2016-09-13 12:36 | PROVIDER PROGRESS NOTE ---
Palliative Care Follow Up - Referral Referring Provider: Denice Campos PA-C Time of Visit: [phone] am Referral setting: Home (Patient is seen in her home setting secondary it is a considerable and taxing effort to leave the home, and to facilitate family conference and adjust treatment plan) Referral Reason: Endometrial Cancer IIc1 - Information Sources Records Reviewed: Other (recent hospitalization, records reviewed) History obtained from: Patient, Family ( Jf) Exam limitations: Clinical condition (Anxious, does take time to process information) - History of Present Illness Update Brief HPI Update: This is a 76 year old woman with metastatic FIGO grade II stage IIIc1 endometrial cancer with lung mets and severe lower extremity lymphadema. She had surgery 07/23 for obstructing tumor with diverting loop colostomy and debulking. Was struggling at home with progressive lymphadema, anorexia, pain, and new colostomy. Unfortunately she present with a prolapsed colostomy, which required another surgery, resection of prolapsed stoma, ostomy revision, with new site and creation of a mucus fistula. She has been home for a few days, they have had a couple of "mishaps" with colostomy leaking and needing replacing , but despite high anxiety had managed. It did leak again this am, but awaiting shower aid to assist and HHRN to follow. She is discouraged, but presents with modulated voice, good eye contact, engaged in conversation and continuing to struggle with decisions related to progressive disease, including pending oncology appointment for Avastin. Social History - Living Situation Living arrangement: At home Living Situation: With spouse/s.o. (very anxious, patient with very complicated regimen for current stress level but managing well.) Support System: Has two daughters, they had been staying over the weekend with grandchildren. Had enjoyed the visit but very tiring. Has many friends that are available for support as well. Medications/Allergies - Medications Home Medications: Ambulatory Orders Medication Instructions Recorded Confirmed Alprazolam 0.125 - 0.25 mg PO TID PRN 07/22/16 09/13/16 Loperamide [Imodium] 2 mg PO Q4HR PRN MDD 16 mg 08/21/16 09/13/16 Mirtazapine 15 mg PO ACHS 08/21/16 09/13/16 Ondansetron HCl [Zofran] 8 mg PO TID PRN 08/21/16 09/13/16 oxyCODONE [Roxicodone] 5 - 10 mg PO Q4HR PRN 08/21/16 09/13/16 Enoxaparin [Lovenox] 40 mg SUBQ DAILY 09/13/16 09/13/16 Polyethylene Glycol 3350 [Miralax] 17 gm PO DAILY 09/13/16 09/13/16 Senna [Senokot] 8.6 mg PO DAILY 09/13/16 09/13/16 - Allergies Allergies/Adverse Reactions: Allergies Allergy/AdvReac Type Severity Reaction Status Date / Time acetaminophen [From Tylenol] AdvReac Unknown Verified 09/01/16 12:22 elastic Allergy Unknown Uncoded 09/01/16 12:22 Review of Systems - Constitutional Constitutional: reports: Fatigue, Weakness, Poor appetite, Weight loss. denies : Fever, Chills - Eyes Eyes: denies: Blurred vision, Vision loss - Ears, Nose & Throat Ears, Nose & Throat: reports: Hearing loss, Hearing aids, Other (appt. made with PCP for ear irrigation) - Cardiovascular Cariovascular: reports: Decr. exercise tolerance. denies: Irregular heart rate , Chest pain - Respiratory Respiratory: reports: SOB with exertion. denies: Cough, SOB at rest - Gastrointestinal Gastrointestinal: reports: Other (new colostomy reports watery stool). denies: Nausea, Vomiting - Genitourinary Genitourinary: denies: Dysuria, Frequency, Incontinence - Musculoskeletal Musculoskeletal: reports: Muscle weakness - Integumentary Integumentary: reports: Dryness - Neurological Neurological: reports: General weakness - Psychiatric Psychiatric: reports: Depression, Anxiety - Endocrine Endocrine: reports: Intolerance to cold - Hematologic/Lymphatic Hematologic/Lymphatic: reports: Anemia (received two units, still anemic at 25) - All Other Systems All Other Systems: reports: Reviewed and negative Physical Examination - Vital Signs Temperature: 97.9 C Pulse Rate: 72 Respiratory Rate: 16 O2 Saturation: 98 (ra at rest) Blood Pressure: 118/62 - Physical Exam General Appearance: positive: Alert, Anxious Eyes Bilateral: positive: Normal inspection ENT: positive: No signs of dehydration Neck: positive: Trachea midline Respiratory: positive: Breath sounds nml Cardiovascular: positive: Regular rate & rhythm Abdomen: positive: Nml bowel sounds (colostomy had leaked, stool on incision, staple intact looking like irritating skin. Both mucus fistula and stoma moist. Noted lower abdominal fullness from lymphadema, firm), Tenderness Skin: positive: Pallor, Dryness Extremities: positive: Pedal edema (lymphadema extending up into thigh/sacral area; pitting and taut; cont. to struggle finding caregiving support to wrap or work with support hose/wraps), Other (gait tentative but steady, difficulty noted getting into bed with heaviness of legs and abd. incisional pain) Neurologic/Psychiatric: positive: Oriented x3, Weakness Palliative Care - POLST Patient has POLST: Yes POLST Status: DNR, Limited Interventions Pain: Pain improved, Location (abdominal ruq at incision/stoma most intensely. Using oxycodone 10 mg about 5x a day with good control, pain at 1-2/10 rarely escalates. exacerbates with movement/twisting) Drowsiness: Comment (very busy over weekend with lots of company, slept "alot" last couple of days in catching up; out again yesterday afternoon) Nausea: None Anxiety: Mild (1-3) (some improvement) Dyspnea: None Anorexia: Mild (1-3) (no diet restrictions; hungary at times, doing better with intake) Insomnia: Sleeps well Constipation: Comment (loose watery stool today, shortened bowel with surgery) Feelings of wellbeing/Perceived Quality of Life: Improved (able to identify some positive, wanting to explore extending life and treatment) Performance Status: PPS 50%, ambulates independently, needs some assist getting into bed. 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 - Palliative Care Discussion: Surrogate decision maker-Jf Erwin/ DPOA documented. Patient with some distress with setback, did have multiple conversations regarding with Dr. Aly/ surgeons, recognizing progressive disease, but hoping to access "options". Worried about the future and further complications, at this time wanting to move forward with oncology appointment and possibly avastin if offered. Understands this is palliative in nature. Discussed at length finishing the POLST which had been initiated at [facility], but not completed. Addressed multiple questions and intent of form in conjunction with advanced directives. Addressed questions regarding transition to hospice and indicators. Counseling regarding weighing benefits and burdens with each decision/cycle and try to stay more in the moment for both. Her hope is to find some improved quality and quantity but feeling anxious regarding this. Results - Lab Results Lab results reviewed: Yes Impression and Recommendations - Palliative Care Impression: This is a denae 76 year old woman struggling with progressive metastatic endometrial cancer, lung mets, and severe lymphadema. She continues with moderate to high symptom burden including anorexia, depression, anxiety, and pain. She is working to continue to clarify goals in the face of ongoing complications. Recommendations/Counseling Done: 1. Depression without psychotic features. Patient presents with improved mood, appropriately grieving and concerned with her decline. Counseling to explore meaning making, living in the moment, allowing decisions to present themselves and not get to far ahead. Will continue the Mirtazipine at 15 mg and to take at bedtime. 2. Anorexia, multifactorial. reports improving intake, sometimes hungry, no restrictions on diet has help. Had Rx for Megace 40 mg BID, was told it was for appetite though 400 mg therapeutic dosing. At this time will hold as improved, burdens may out way benefits at this time. In agreement with plan. 3. Acute on chronic pain. Taking oxycodone 10 mg about 5x a day with good control at this time. Had started conversation about long acting, will wait as patient's concerns remain lethargy, and is improving. 4. Colostomy management. Now had 2 bags, remains somewhat overwhelmed but they did manage through the week. Stool watery, inst. to decrease Miralax 1/2 capful at this time. Will cont. with Senna for now. 5. Advanced planning. POLST discussion addressed questions concerns, reviewed goals, and future decision making. Counseling for anticipatory guidance provided. Time Spent: 75 minutes with greater than 50% done in counseling for symptom management, goals of care, POLST and anticipatory guidance.
== END 2016-09-13 09:46 | disposition home or self-care (01) ==
LOC: PC 09:45
PROVIDERS: ATTEND Nurse Practitioner Adult Health
DX: Z51.5 Encounter for palliative care (principal); F32.9 Major depressive disorder, single episode, unspecified; R63.0 Anorexia; G89.28 Other chronic postprocedural pain; C54.1 Malignant neoplasm of endometrium; C78.00 Secondary malignant neoplasm of unspecified lung; I89.0 Lymphedema, not elsewhere classified; F41.9 Anxiety disorder, unspecified; Z79.891 Long term (current) use of opiate analgesic; Z93.3 Colostomy status; Z66 Do not resuscitate
CPT/HCPCS: 99350

== ENCOUNTER 2016-09-20 09:30 | Outpatient (CLI) | payer MEDICARE, OTHER ==
--- NOTE | 2016-09-20 22:12 | PROVIDER PROGRESS NOTE ---
Palliative Care Follow Up - Referral Referring Provider: Denice Campos PA-C Time of Visit: [phone] Referral setting: Home (It is with a taxing and considerable effort for her to leave the home related LE weakeness) Referral Reason: Depression - Information Sources Records Reviewed: Old records reviewed History obtained from: Patient, Family (jalil Rhoades) Exam limitations: Clinical condition (patient continues with anxiety and existenstial distress regarding her condition) - History of Present Illness Update Brief HPI Update: This is a 76 year old woman with metastatic endometrial concer with lung mets and severe obstruction lower extremity edema. She has surgery 07/13 for obstructing tumor with diverting loop colostomy and debulking 07/13. On discharge , continue to struggle at home with colostomy care, anorexia, depression and anxiety and pain. Unfortunately then again, presented with prolapsed stoma resulting in another surgery 09/01 with revision and relocation of colostomy and creation of mucous fistula. She had been improving somewhat slowly, but today is feeling overwhelmed again, has had intermittent nausea with an episode of vomiting, severe fatigue, weight loss and continued progressive lymphadema of LE /abdomen into sacral area, which is her symptom of causing her the most distress. She has at baseline MIGUEL, and has continued to struggle with her current quality of life has it continues to deteriorate. She is still awaiting her oncology appointment regarding further treatment options, at this time somewhat ambivalent, of moving forward with Avastin. Social History - Living Situation Living arrangement: At home Living Situation: With spouse/s.o. Support System: Patient and have an extensive network of friends that can be overwhelming in trying to balance finding support and feeling overwhelmed. struggles with what is right balance. They have two daughters. They do have some paid and volunteer caregiving support. is providing nursing support for colostomy and symptoms and bathing. Medications/Allergies - Medications Home Medications: Ambulatory Orders Medication Instructions Recorded Confirmed Alprazolam 0.125 - 0.25 mg PO TID PRN 07/22/16 09/13/16 Loperamide [Imodium] 2 mg PO Q4HR PRN MDD 16 mg 08/21/16 09/13/16 Mirtazapine 15 mg PO ACHS 08/21/16 09/13/16 Ondansetron HCl [Zofran] 8 mg PO TID PRN 08/21/16 09/13/16 oxyCODONE [Roxicodone] 5 - 10 mg PO Q4HR PRN 08/21/16 09/13/16 Enoxaparin [Lovenox] 40 mg SUBQ DAILY 09/13/16 09/13/16 Polyethylene Glycol 3350 [Miralax] 17 gm PO DAILY 09/13/16 09/13/16 Senna [Senokot] 8.6 mg PO DAILY 09/13/16 09/13/16 - Allergies Allergies/Adverse Reactions: Allergies Allergy/AdvReac Type Severity Reaction Status Date / Time acetaminophen [From Tylenol] AdvReac Unknown Verified 09/01/16 12:22 elastic Allergy Unknown Uncoded 09/01/16 12:22 Review of Systems - Constitutional Constitutional: reports: Fatigue, Weakness, Poor appetite, Weight loss. denies : Fever, Chills - Eyes Eyes: reports: Vision loss, Corrective lenses - Ears, Nose & Throat Ears, Nose & Throat: reports: Hearing loss, Hearing aids. denies: Mouth lesions - Cardiovascular Cariovascular: reports: Exertional dyspnea, Decr. exercise tolerance. denies: Chest pain - Respiratory Respiratory: reports: SOB with exertion. denies: Cough, SOB at rest - Gastrointestinal Gastrointestinal: reports: Abdominal distention, Nausea (patient developed nausea on awakening; unclear what medication to use; given ondansetron at time of visit with relief. Reviewed use and indicatin; does have compazine both MS and Oral if needed in addition but given easily overwhelmed with meds asked to call if ondansetron not effective for further inst.), Vomiting (one episode last week with just bile and undigested pill), Bloating, Poor appetite. denies: Reflux/heartburn - Genitourinary Genitourinary: reports: Frequency, Incontinence (mild) - Musculoskeletal Musculoskeletal: reports: Stiffness, Muscle weakness - Integumentary Integumentary: reports: Dryness, Other (surgical incision; midline and lateral LUQ) - Neurological Neurological: reports: General weakness, Memory problems (STM at times for chronically symptoms etc.) - Psychiatric Psychiatric: reports: Depression (had been feeling better; today feeling overwhelmed and "it's not working"; discussed grief and loss; is seeing therapist), Anxiety (presents with existential distress; with continued physicial decline is overwhelmed) - Endocrine Endocrine: reports: Intolerance to cold - Hematologic/Lymphatic Hematologic/Lymphatic: reports: Anemia - All Other Systems All Other Systems: reports: Reviewed and negative Physical Examination - Vital Signs Temperature: 98.1 C Pulse Rate: 64 Respiratory Rate: 18 Blood Pressure: 102/64 - Physical Exam General Appearance: positive: Moderate distress, Anxious Eyes Bilateral: positive: Conjunctivae nml, No scleral icterus ENT: positive: Dry mucous membranes. negative: Oral lesions Neck: positive: Trachea midline Respiratory: positive: Breath sounds nml (diminished in bases; left greater than right) Cardiovascular: positive: Regular rate & rhythm Abdomen: positive: Nml bowel sounds (patient with watery stool in colostomy; reports good volume but quite loose light brown in color), Tenderness, Guarding (taut lymphadema in tissues through lower pelvic region; tenderness with palpation but upper abdomen soft) Skin: positive: Pallor, Dryness, Other (skin taut on LE with no breakdown at this time) Extremities: positive: Pedal edema (lymphadema up into sacral area; unable to use much support) Neurologic/Psychiatric: positive: Oriented x3, Weakness, Depressed mood/affect ( distress with nausea this am; awakens feeling overwhelmed by situation; does us the alprazalom on awakening and helps "some") Palliative Care - POLST Patient has POLST: Yes POLST Status: DNR, Limited Interventions Pain: Pain unchanged, Location (pain remains diffuse through abdomen; occasional sharp shooting RUQ; most discomfort with lympadema LE legs feel "heavy"), Severity (1-2/10. Using ibuprofen 400 mg about 2-3 times a day; and oxycodone 5-10 mg 3-4 x a day intermittently with relief) Drowsiness: Mild (1-3) (with activity does get severe fatigue particularly next day) Nausea: Moderate (4-6) (at time of visit, relieved with ondansetron) Anxiety: Moderate (4-6) Dyspnea: Mild (1-3) Anorexia: Moderate (4-6) (intake remains problematic; early satiety), Weight loss Insomnia: Sleeps well Constipation: No, Opoid induced, Managed (current bowel program Miralax 1/2 capful and senna 1 tab daily) Feelings of wellbeing/Perceived Quality of Life: Worsening Performance Status: Current level of functioning [patient able to walk short distances in home, fatigues easily. Receiving assistance with bathing, spends most of time in recliner or bed]. Palliative Care Performance Status [50%]. - Palliative Care Discussion: Patient presents overwhelmed and distressed this am. Counseling to normalize current feelings of loss and grief, patient with progressive disease and high symptom burden with continued failure to thrive and functional decline. Remains ambivalent regarding pursing ongoing therapy, and finds it overwhelming to cope day to day. Cognitive behavioral techniques/counseling employed to assist patient to focus on setting short term goals; refocus on things that have meaning related to relationships, enjoying garden, and staying in the moment. Feels like friends are coming and visiting to say goodbyes; reframed it as a positive that they are honoring her while she is still with us and that is the intention most likely given her current situation and looking into the future. Offered volunteer to help with legacy work, will consider. Patient perseverating on "fixing" lymphadema, gently reviewed as part of her progressive disease process and would not expect for it to improve, need to focus on preventing complications of skin breakdown and comfort. Counseled separately in addressing his questions and concerns, wondering about transition to hospice. Has max. support currently under auspices of palliative prison health team, wanting to see executive secretary social welfare to further explore plans and support. Reviewed until patient has made decision not to do chemotherapy or goal to focus on comfort and no further hospitalizations would not qualify. Addressed questions regarding prognosis including may not be a candidate for further treatment given her frailty and continued decline related to her progressive disease. Impression and Recommendations - Palliative Care Impression: This is a very frail 76 year old woman presenting with symptoms of disease progression and high symptom burden, presenting with failure to thrive. Both her and her continue to struggle with her ongoing decline and diminished quality of life. She is awaiting final options regarding further treatment, continued ambuguity regarding whether wishes to persue. Recommendations/Counseling Done: 1. Nausea without vomiting today. patient with nausea at time of visit, medicated with ondansetron with relief. Concern related patients high risk for ongoing recurrent obstruction. Counseling to on use (does have compazine if needed both MS/PO if ondansetron not effective). Inst. to not take pills on empty stomach with small amounts of food. 2. Anorexia. patient with early satiety, and weight loss. Does feel hungry at times, eating better, friends bringing in food. Most likely not going to impact in meaningful way with disease progression. Causes significant amount of stress to patient, encouraged to continue frequent small frequent meals and eating for enjoyment. 3. Pain of neoplastic origin. Patient without severe pain 1-2/, controlled with intermittent dosing. Introducing change in this dyad can be problematic and overwhelming. Will leave current regimen as currently effective. Will consider fentanyl 12 mcg in future if continues with nausea. 4. Depression. Patient and displaying appropriate feelings of anticipatory grief. Counseling over acknowledging and processing as able, both are getting counseling. A "pill" is not going to fix this, on mirtazipine 15 mg at bedtime, given current fatigue level and decline, will most likely not benefit at pushing up the dose on this. Does have overall improvement of mood, but easily overwhelmed. CBT (see above discussion) employed to help with coping. 5. Anxiety. Using alprazalom intermittently as needed and on awakening. 6. LE lymphadema increasing, attributed to disease progression. Given current caregiving and support, encouraged support hose,wrapping as able. Most likely will help with comfort but not resolution. 7. Advanced care planning. POLST in place. Patient currently would meet hospice criteria, continues to vacillate on pursuing treatment. Unfortunately the burden may outweigh the benefit with her current functional decline, symptom burden, and weight loss. Has pending visits both with Dr. Aly and Dr. Araujo. Given her PPS of 40% based on median survival of patients with advanced cancer most likely case of survival is 51 days. Will continue to provide palliative care support through definition of goals; work with HH for management of symptoms; and assist with transition to hospice when ready. Will follow up with Palliative Yarder Boss per husbands request. Time Spent: 75 minutes with greater than 50% done in counseling and coordination of care for symptom management and anticipatory guidance
== END 2016-09-20 09:31 | disposition home or self-care (01) ==
LOC: PC 09:30
PROVIDERS: ATTEND Nurse Practitioner Adult Health
DX: Z51.5 Encounter for palliative care (principal); R11.0 Nausea; R63.0 Anorexia; R68.81 Early satiety; R63.4 Abnormal weight loss; R62.7 Adult failure to thrive; G89.3 Neoplasm related pain (acute) (chronic); F43.21 Adjustment disorder with depressed mood; F41.1 Generalized anxiety disorder; I89.0 Lymphedema, not elsewhere classified; C54.1 Malignant neoplasm of endometrium; C78.00 Secondary malignant neoplasm of unspecified lung; Z93.3 Colostomy status; Z66 Do not resuscitate; Z79.891 Long term (current) use of opiate analgesic; Z79.1 Long term (current) use of non-steroidal anti-inflammatories (NSAID)
CPT/HCPCS: 99350

== ENCOUNTER 2016-09-27 09:30 | Outpatient (CLI) | payer MEDICARE, OTHER ==
--- NOTE | 2016-09-27 23:12 | PROVIDER PROGRESS NOTE ---
Palliative Care Follow Up - Referral Referring Provider: Denice Campos PA-C Time of Visit: [phone] Referral setting: Home (It is a taxing and considerable effort for the patient to leave the home related to fatigue and pain, and to facilitate family conference) Referral Reason: Pain of neoplastic origin - Information Sources Records Reviewed: RN notes reviewed History obtained from: Patient, Family ( Jf) Exam limitations: No limitations - History of Present Illness Update Brief HPI Update: This is a denae 76 year old woman with metastatic endometrial cancer with lung mets and lymph node obstruction resulting in severe lower extremity edema that extends up into abdominal area and sacrum. She has a colostomy and mucous fistula as a result of obstructing tumor with her latest surgery 09/02 with revision and relocation of colostomy and creation of a mucous fistula. She remains easily overwhelmed, but has experienced persistent pain mostly diffuse located in abdomen and then increasing discomfort from abdominal/LE lymphadema. She is feeling better with the ondansetron using 1-2xs a day, increased intake, and functionally more active than previous week. She continues to struggle with goals of care and awaiting on proceeding with appointments to evaluate if candidate still for Avastin. Social History - Living Situation Living arrangement: At home Living Situation: With spouse/s.o. (Jf primary caregiver, many aspects to track and feeling overwhelmed with details and emotionally) Support System: Has two daughters, many friends that want to provide support. Part of [facility] that has resources to draw upon, as well as paid caregiving hours for respite. Medications/Allergies - Medications Home Medications: Ambulatory Orders Medication Instructions Recorded Confirmed Alprazolam 0.125 - 0.25 mg PO TID PRN 07/22/16 09/27/16 Loperamide [Imodium] 2 mg PO Q4HR PRN MDD 16 mg 08/21/16 09/27/16 Mirtazapine 15 mg PO ACHS 08/21/16 09/27/16 Ondansetron HCl [Zofran] 8 mg PO TID PRN 08/21/16 09/27/16 oxyCODONE [Roxicodone] 5 - 10 mg PO Q3HR PRN 08/21/16 09/27/16 Polyethylene Glycol 3350 [Miralax] 17 gm PO DAILY PRN 09/13/16 09/27/16 Senna [Senokot] 8.6 mg PO DAILY PRN 09/13/16 09/27/16 - Allergies Allergies/Adverse Reactions: Allergies Allergy/AdvReac Type Severity Reaction Status Date / Time acetaminophen [From Tylenol] AdvReac Unknown Verified 09/01/16 12:22 elastic Allergy Unknown Uncoded 09/01/16 12:22 Review of Systems - Constitutional Constitutional: reports: Fatigue, Poor appetite, Weight loss. denies: Fever, Chills - Eyes Eyes: denies: Vision loss - Ears, Nose & Throat Ears, Nose & Throat: reports: Hearing loss, Hearing aids - Cardiovascular Cariovascular: reports: Exertional dyspnea, Decr. exercise tolerance. denies: Chest pain - Respiratory Respiratory: reports: SOB with exertion. denies: SOB at rest - Gastrointestinal Gastrointestinal: reports: Abdominal distention, Nausea (controlled with intermittent ondansetron), Poor appetite, Other (colostomy with watery consistency; no bowel meds needed) - Genitourinary Genitourinary: reports: Urgency, Incontinence (occasional) - Musculoskeletal Musculoskeletal: reports: Muscle aches, Muscle weakness - Integumentary Integumentary: reports: Dryness - Neurological Neurological: reports: General weakness - Psychiatric Psychiatric: reports: Depression (reports is improved overall), Anxiety ( struggles with how best to attend to this) - Endocrine Endocrine: reports: Intolerance to cold, Intolerance to heat - Hematologic/Lymphatic Hematologic/Lymphatic: reports: Anemia - All Other Systems All Other Systems: reports: Reviewed and negative Physical Examination - Vital Signs Temperature: 97.8 C Pulse Rate: 71 Respiratory Rate: 18 O2 Saturation: 95 (ra at rest) Blood Pressure: 92/52 - Physical Exam General Appearance: positive: No acute distress, Anxious Eyes Bilateral: positive: Normal inspection ENT: positive: ENT inspection nml Neck: positive: Trachea midline Respiratory: positive: Breath sounds nml Cardiovascular: positive: Regular rate & rhythm Abdomen: positive: Nml bowel sounds, Guarding, Other ( lymphadema through lower pelvic region and up into sacrum; measurements from HH 28 inches) Skin: positive: Pallor, Dryness, Other (surgical incision well healed) Neurologic/Psychiatric: positive: Oriented x3, Mood/affect nml, Weakness Palliative Care - POLST Patient has POLST: Yes POLST Status: DNR, Limited Interventions (use antibiotics if life can be prolonged; determine use of medically assisted nutrition) Pain: Pain worsening, Location (abdominal vague; lymphadema), Severity (mild to moderate), Comment (has been using oxycodone 10 mg 5-6 x day, had increased over weekend; not acute in nature) Drowsiness: Mild (1-3) Nausea: Mild (1-3) (using ondansetron twice a day with control of queasiness; no vomiting) Anxiety: Moderate (4-6) (Feels better is using alprazolom in AM, most anxious on awakening; encouraged to use during the day if escalating) Dyspnea: Mild (1-3) (mostly with exertion) Anorexia: Moderate (4-6) (is doing better with intake; has had some weight gain 117.6 from previous week 115.8) Insomnia: Sleeps well Constipation: No, Comment (patient colostomy output "thick paste" without any bowel medications currently) Feelings of wellbeing/Perceived Quality of Life: Improved (doing better this week; still distressed over current quality of life but able to express some acceptance in the context of her illness) Performance Status: Palliative Care Performance Status [60%]. Patient needing assistance with bathing/HH aide coming twice a week; some assistance getting in and out of bed given height of bed. Ambulating further distances in home; garden with pacing - Palliative Care Discussion: Patient continues to struggle with living in the moment and worrying about decline in the future. Counseling to normalize process of future decline, used car analogy of "running out of gas" as disease progressed. Patient struggles with current quality of life whether to pursue further treatment/ aware with current fragile state may not be candidate and this is difficult to absorb as well. Somewhere in her view of her illness she was looking at "3 weeks", unable to define where this came from other than initial conversations at [facility]. Encouraged to refocus on day to day setting goals for pleasant activities; hope for the best but prepare for worst in the context of setting priorities. struggles with anxiety and caregiving tasks and trying to be organized/ feel in control. Impression and Recommendations - Palliative Care Impression: This is a frail 76 year old woman who continues to struggle with her ongoing symptom burden related to pain, fatigue, and lymphadema. She has made small improvements with increased intake and attempting to increase activity level. Remains ambivalent about moving forward with current quality of life, though not wanting to "give in" at this time. Recommendations/Counseling Done: 1. Pain of neoplastic origin, increasing. Prescribed Fentanyl 12 mcg patch with use of oxycodone 5-10 mg as needed for breakthrough pain. Equianalgesic would be 25 mcg, but patient and easily overwhelmed so will start low and titrate to effect. Counseling done with written instructions provided, and reenforced. HH RN notified to be able to continue teaching as well. Lymphadema discomfort, getting light massage, remains problematic for compression with support for putting on/off, so not consistent. 2. Constipation, colostomy high up passing soft paste without difficulty even with increase in opioid use. Counseling to use miralax as needed. 3. Depression. Does appear better, voice modulated, good eye contact, processing grief and loss. Given her current situation increasing mirtazipine most likely will not yield any benefit. She is getting counseling support through [facility], and private counselor. 4. Anxiety, Patient has long standing anxiety disorder, with good insight into her current coping and processing. Counseling on continued use of alprazolam in AM, and later in day if feeling overwhelmed or escalating. 5. Advanced Care Planning, POLST in place, goals currently to focus on quality and quantity of life, if quality acceptable. Awaiting to find out if will be able to proceed with Avastin. Time Spent: 75 minutes with greater than 50% done in counseling for anticipatory guidance and opioid use and safey, coordination of care with HH.
== END 2016-09-27 09:31 | disposition home or self-care (01) ==
LOC: PC 09:30
PROVIDERS: ATTEND Nurse Practitioner Adult Health
DX: Z51.5 Encounter for palliative care (principal); G89.3 Neoplasm related pain (acute) (chronic); Z71.89 Other specified counseling; F32.9 Major depressive disorder, single episode, unspecified; F41.9 Anxiety disorder, unspecified; C54.1 Malignant neoplasm of endometrium; C78.00 Secondary malignant neoplasm of unspecified lung; I89.0 Lymphedema, not elsewhere classified; Z66 Do not resuscitate; Z79.891 Long term (current) use of opiate analgesic; Z93.3 Colostomy status
CPT/HCPCS: 99350

== ENCOUNTER 2016-10-04 09:30 | Outpatient (CLI) | payer MEDICARE, OTHER ==
--- NOTE | 2016-10-04 11:25 | PROVIDER PROGRESS NOTE ---
Palliative Care Follow Up - Referral Referring Provider: Denice Campos PA-C Time of Visit: [phone] Referral setting: Home (It is with taxing and considerable effort for patient to leave the home related to weakness and fatigue due to cancer) Referral Reason: Pain of neoplastic origin - Information Sources Records Reviewed: Other (Dr Aly's note) History obtained from: Patient, Family (Jf her , helps track information) Exam limitations: Clinical condition (patient can be vague/drifty and some short term memory issues) - History of Present Illness Update Brief HPI Update: This is a denae 76 year old woman with metastatic endometrial cancer with lungs mets and lymph noed obstruction resulting in severe lower extremity lymphadema that extends up into her sacral area/groin and lower abdomen. Patient has a colostomy as a result of a large bowel obstruction from progressive disease 07/13; and then 09/02 required a revision and relocation of colostomy and creation of mucous fistula. She continues with persistent pain in lower abdominal region; diffuse in nature, had delayed application of fentanyl 12 mcg patch until Sunday of last week. She is still consistently taking about 45-60 mg of oxycodone, unclear if for BTP or scheduling as before. Both are easily overwhelmed, had initially gotten a good response, will proceed with plan to titrate today. She did see Dr. Aly, but related to her performance status is not going to proceed with the Avastin at this time. Patient remains focused on the lymphadema, and at this point feels would be able to tolerate trip to therapy for evaluation. Reminded them the other barrier was currently patient is not able to participate in the program as before, and would require training of caregiver, she is adament she wants to proceed. She continues to struggle with appetite, less nausea, colostomy care, and deconditioning. Social History - Living Situation Living arrangement: At home Living Situation: With spouse/s.o. (has some paid caregiving assistance; does recognize would benefit from more support) Medications/Allergies - Medications Home Medications: Ambulatory Orders Medication Instructions Recorded Confirmed Alprazolam 0.125 - 0.25 mg PO TID PRN 07/22/16 10/04/16 Loperamide [Imodium] 2 mg PO Q4HR PRN MDD 16 mg 08/21/16 10/04/16 Mirtazapine 15 mg PO ACHS 08/21/16 10/04/16 Ondansetron HCl [Zofran] 8 mg PO TID PRN 08/21/16 10/04/16 oxyCODONE [Roxicodone] 5 - 10 mg PO Q3HR PRN 08/21/16 09/27/16 Polyethylene Glycol 3350 [Miralax] 17 gm PO DAILY PRN 09/13/16 10/04/16 Senna [Senokot] 8.6 mg PO DAILY PRN 09/13/16 10/04/16 fentaNYL 12 MCG PATCH [Duragesic 25 mcg TOP Q3D 10/03/16 10/04/16 12mcg patch] - Allergies Allergies/Adverse Reactions: Allergies Allergy/AdvReac Type Severity Reaction Status Date / Time acetaminophen [From Tylenol] AdvReac Unknown Verified 09/01/16 12:22 elastic Allergy Unknown Uncoded 09/01/16 12:22 Review of Systems - Constitutional Constitutional: reports: Fatigue, Weakness, Poor appetite - Eyes Eyes: reports: Vision loss - Ears, Nose & Throat Ears, Nose & Throat: reports: Hearing loss, Hearing aids, Other (complains of taste changes; every thing tastes salty) - Cardiovascular Cariovascular: reports: Exertional dyspnea, Decr. exercise tolerance. denies: Chest pain - Respiratory Respiratory: reports: SOB with exertion. denies: Cough - Gastrointestinal Gastrointestinal: reports: Abdominal pain, Nausea (intermittent in nature; no pattern), Poor appetite, Other (colostomy with liquid stool). denies: Vomiting - Genitourinary Genitourinary: reports: Urgency - Musculoskeletal Musculoskeletal: reports: Stiffness, Limited range of motion (lymphadema limits movement and mobility of LE), Muscle weakness - Integumentary Integumentary: reports: Dryness - Neurological Neurological: reports: General weakness, Memory problems, Abnormal gait (legs heavy; shuffled gait) - Psychiatric Psychiatric: reports: Depression (improved;), Anxiety - Endocrine Endocrine: reports: Intolerance to cold - Hematologic/Lymphatic Hematologic/Lymphatic: denies: Recurrent infections - All Other Systems All Other Systems: reports: Reviewed and negative Physical Examination - Vital Signs Temperature: 98.5 C Pulse Rate: 80 Respiratory Rate: 18 O2 Saturation: 99 Blood Pressure: 102/62 - Physical Exam General Appearance: positive: Mild distress Eyes Bilateral: positive: Conjunctivae nml, No scleral icterus ENT: positive: No signs of dehydration. negative: Oral lesions Neck: positive: Trachea midline Respiratory: positive: Other (diminished in bases). negative: Wheezes, Rales Cardiovascular: positive: Regular rate & rhythm Abdomen: positive: Nml bowel sounds, Other (stoma protrudes about 1.5 inches; bright pink; mucuos fistula protrudes about .75 inches more of a dull pink; surgical incision well healed; edematous across lower abdomen; concave; no masses appreciated;) Skin: positive: Pallor, Other (LE taut with lymphadema; small fluid blisters; limited succes wtih support hose with caregiving support; no open areas at this time) Extremities: positive: Other (extreme LE edema; patient distressed my heaviness and impact on QOL) Neurologic/Psychiatric: positive: Oriented x3, Mood/affect nml, Weakness Palliative Care - POLST Patient has POLST: Yes POLST Status: DNR, Limited Interventions Pain: Pain improved, Location (abdominal; discomfort from lymphadema), Severity (moderate; improved on patch but still large amount of BTP med) Drowsiness: None (no noted increase in sedation from fentanyl patch), Comment ( does get easily exhausted and sleeping for several hours in response) Nausea: Mild (1-3) (intermittent and fleeting mostly; ondansetron unclear if helpful has not found pattern nor convinced of help) Anxiety: Mild (1-3) (appear calm and engage today) Dyspnea: Moderate (4-6) (with activity) Anorexia: Moderate (4-6) (continues to struggle with caloric intake; early satiety; and taste changes; is eating better than previously) Insomnia: Sleeps well Constipation: No Feelings of wellbeing/Perceived Quality of Life: Comment (unable to define today ; felt some perioids with patch on better and improved; remains distressed at continued decline) Performance Status: Current level of functioning [patient needing assistance to shower; meal prep; and oversite for medications. Ambulating independently in home; tires easily]. Palliative Care Performance Status [50%]. - Palliative Care Discussion: Patient does not appear too distressed over decision about not having chemotherapy at this time, feel if lymphadema was "controlled" would be able to better tolerate or consider option. Unfortunately, my suspicion is that the lymphadema that is quite severe and extends into sacrum/abdomen is reflective of disease progression. She may benefit though from comfort and support of wraps and at least evaluating if tolerates trip/sessions. Discussed the concept again of weighing benefit and burden given her fatigue and defining what is most important at this time. She would like to go forward; HH aware as they do not have lymphadema management should not interfere, and other consideration is now is left leg vs right for further support for medicare coverage. aware may incur cost but hoping can be worked out, knowing it is important to Elma. Impression and Recommendations - Palliative Care Impression: This is a 76 year old woman with metastatic endometrial cancer to the lung, severe bilateral LE lymphadema to sacral/abdominal area, high symptom burden and functional decline. Will titrate fentanyl to 25 mcg, continue focus on ways to support her QOL, recognizing quantity remains limited. Patient currently does not want to transition to hospice at this time, but move forward with hope to improve her current status to consider treatment in the future. Recommendations/Counseling Done: 1. Pain of neoplastic origin. Place 2nd Fentanyl 12 mcg patch for total of 24 mcg. Inst. to change out BOTH tomorrow for 25 mcg; Rx given, will hold on to 12 mcg for future titration. Inst. to use oxycodone 10 mg every 3 hours as needed PRN for BTP, counseling provided on threshold (had still been doing some scheduling). Will track total amount to use further in titration as indicated. 2. Anorexia. Patient intake actually somewhat improved, nausea intermittent unclear if ondansetron helpful. and patient have been counseled on more frequent small feedings but many barriers with visitors and feeling overwhelmed in being able to follow through. Caregiver support does help. 3. Lymphadema. Will send RX up for therapy, encouraged to get evaluation first before get enmeshed in details. Reviewed again to measure it in the context of her limited energy with the benefit and burden columns. 4. Colostomy management. Caregiver assisting with learning care/ and patient having difficulty. Currently HH providing changes as well as bathing assistance to meet needs. 5. Advanced care planning. aware and expressed his concern/tearful of her continued decline, is aware heading to hospice but wants to honor Elma's goals and journey. At this time patient not a candidate for avastin, performance status, continued cachexia, and frailty preclude. Time Spent: Time spent 60 minutes with greater than 50% done in counseling for pain and symptom management, anticipatory guidance, and defining goals
== END 2016-10-04 09:31 | disposition home or self-care (01) ==
LOC: PC 09:30
PROVIDERS: ATTEND Nurse Practitioner Adult Health
DX: Z51.5 Encounter for palliative care (principal); G89.3 Neoplasm related pain (acute) (chronic); R11.0 Nausea; I89.0 Lymphedema, not elsewhere classified; Z93.3 Colostomy status; C54.1 Malignant neoplasm of endometrium; C78.00 Secondary malignant neoplasm of unspecified lung; Z79.891 Long term (current) use of opiate analgesic; Z66 Do not resuscitate
CPT/HCPCS: 99350

== ENCOUNTER 2016-10-11 09:30 | Outpatient (CLI) | payer MEDICARE, OTHER ==
--- NOTE | 2016-10-11 20:49 | PROVIDER PROGRESS NOTE ---
Palliative Care Follow Up - Referral Referring Provider: Nallely Campos PA-C Time of Visit: [phone] Referral setting: Home (patient is seen in home setting secondary to it is a taxing and considerable effort to leave the home due to fatigue/pain and weakness as a result of progressin of disease) Referral Reason: Pain of neoplastic origin - Information Sources Records Reviewed: Other (patient logs) History obtained from: Patient, Family ( Jf, very tired but trying to track care) Exam limitations: Clinical condition (patient vague and drifty; some short term memory issues, continuing to decline) - History of Present Illness Update Brief HPI Update: This is a denae 76 year old woman with metastatic endometrial cancer with lung mets and severe lymphadema of the lower extremeties and lower abdomen. 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 She has continued to have increasing pain in her lower abdomen from tumor, as well as "discomfort" of increasing lymphadema of her lower extremeties, extending into sacral/lower abdomen to mid abdomen today. Skin is taut but currently intact and not weeping. She has been sleeping more, more difficulty with walking, less intake, and more discomfort with eating. She has had less output of colostomy with less intake, it is soft and "mushy" but of concern is risk for obstructive symptoms again. Her nausea "squeamishness" is most prominent when drinking water, no vomiting or acute pain currently. Bowel sounds hypoactive. Fentanyl as of yesterday 37 mcg, 30 mg oxycodone yesterday with the addition of the 12 mcg, vs 60-70 mg over weekend. Patient appears more cachetic and gaunt, and much more frail today. There have been many phone calls in last 2 days regarding husbands wishes and hopes she will consider hospice transition to better support both him and her, in agreement it is time to transition and goal of meeting today is to explore and support Ana to come to some agreements. Social History - Living Situation Living arrangement: At home Living Situation: With spouse/s.o., With caregiver(s) (has increased caregiving help to at least 6 hours daily, but Jf is exhausted both physically and emotionally, had visited [facility], but no opening currently. Did not mention this to Elma) Medications/Allergies - Medications Home Medications: Ambulatory Orders Medication Instructions Recorded Confirmed Alprazolam 0.125 - 0.25 mg PO TID PRN 07/22/16 10/11/16 Mirtazapine 15 mg PO ACHS 08/21/16 10/11/16 Ondansetron HCl [Zofran] 8 mg PO TID PRN 08/21/16 10/11/16 oxyCODONE [Roxicodone] 10 mg PO Q3HR PRN 08/21/16 10/11/16 Polyethylene Glycol 3350 [Miralax] 8 gm PO DAILY PRN 09/13/16 10/11/16 Senna [Senokot] 8.6 mg PO DAILY PRN 09/13/16 10/11/16 fentaNYL 12 MCG PATCH [Duragesic 37 mcg TOP Q3D 10/03/16 10/11/16 12mcg patch] - Allergies Allergies/Adverse Reactions: Allergies Allergy/AdvReac Type Severity Reaction Status Date / Time acetaminophen [From Tylenol] AdvReac Unknown Verified 09/01/16 12:22 elastic Allergy Unknown Uncoded 09/01/16 12:22 Review of Systems - Constitutional Constitutional: reports: Fatigue, Weakness, Poor appetite, Weight loss - Eyes Eyes: reports: Vision loss - Ears, Nose & Throat Ears, Nose & Throat: reports: Hearing loss, Hearing aids - Cardiovascular Cariovascular: reports: Exertional dyspnea, Decr. exercise tolerance, Other ( portacath right chest;). denies: Chest pain - Respiratory Respiratory: reports: SOB with exertion. denies: Cough, Orthopnea, SOB at rest - Gastrointestinal Gastrointestinal: reports: Nausea, Reflux/heartburn, Poor appetite - Genitourinary Genitourinary: reports: Frequency, Urgency, Incontinence - Musculoskeletal Musculoskeletal: reports: Muscle weakness, Other (lyphadema less of focus today in conversation, worsening but bedbound now more with legs up) - Integumentary Integumentary: reports: Dryness - Neurological Neurological: reports: General weakness, Memory problems - Psychiatric Psychiatric: reports: Depression (patient tearful through conversation but still improved from baseline with mirtazipine; will continue though noted appetite diminished with disease progression still benefiting), Anxiety ( patient underlying anxiety disorder; doing pretty well from her baseline; less energy to invest in this) - Endocrine Endocrine: reports: Intolerance to cold - Hematologic/Lymphatic Hematologic/Lymphatic: reports: Anemia. denies: Recurrent infections - All Other Systems All Other Systems: reports: Reviewed and negative Physical Examination - Vital Signs Temperature: 97.8 C Pulse Rate: 96 Respiratory Rate: 18 O2 Saturation: 98 (ra at rest) Blood Pressure: 102/62 - Physical Exam General Appearance: positive: Mild distress, Anxious (gets anxious when trying to describe symptoms;) Eyes Bilateral: positive: Normal inspection ENT: positive: Dry mucous membranes (taking sips without choking of tea during visit) Neck: positive: Trachea midline Respiratory: positive: Breath sounds nml (diminished in bases; left greater than right) Cardiovascular: positive: Tachycardia Abdomen: positive: Tenderness, Guarding (firm lower abdomen with taut edema through groin/thighs/sides), Abnml bowel sounds (diminished; stool output soft but less than 1/4 of cup; has been putting out giovana small amounts;) Skin: positive: Pallor, Dryness Extremities: positive: Nml appearance Neurologic/Psychiatric: positive: Disoriented to time, Other (appropriately tearful as reviewed patient's decline and transition to hospice support) Palliative Care - POLST Patient has POLST: Yes POLST Status: DNR, Limited Interventions Pain: Pain worsening, Location (lower abdominal), Severity (3-4/10), Pattern ( intermittent but worse with eating/drinking) Drowsiness: Moderate (4-6), Comment (had energy surge on Sunday; has been more tired and lethargic sine that time.) Nausea: Mild (1-3) Anxiety: Moderate (4-6) Dyspnea: Mild (1-3) Anorexia: Severe (7-10), Weight loss Insomnia: Sleep improved Constipation: No, Opoid induced Feelings of wellbeing/Perceived Quality of Life: Worsening Performance Status: Patient previously able to ambulate short distances in home including up stairs to bath; currently bed bath; eating in bed; has not been up for a few days; weak and shakey, more difficult to assist in bed; Jf needing more assistance to manage. PPS40% - Palliative Care Discussion: Patient perplexed why her pain is continuing to increase and just can't getting to feeling better.....let the door open to talk about her signs of progressive disease with more pain, sleeping more; eating less; weaker with no acute symptoms other than decline to attribute them to. Revisited car analogy, that she was "running out of gas" and how best to support her and Jf in this last part of the journey, that this is indeed what dying looks like. She thought she would have at least until October and was shocked to realize we were in October. Reviewed as her care needs have increased; Jf is needing more support; and she had expressed wishes to have a at home so this would be a natural junction to bring in hospice. Counseling regarding the hospice team/ benefit and current need for safety for equipment, this is soares to get hospital bed in place to help Jf with transfers and care. This was one of the most difficult things of the conversation as it is their "family" bed, and very much did not want to give it up. Addressed questions of DWD, patient most likely has days to weeks, and already has difficulty swallowing and pills, reassured we can focus on keeping her comfortable, and downside is need to take medications more "up stream" before the natural process. She did not feel that was a match for her, relieved but wanted it "on the table". Impression and Recommendations - Palliative Care Impression: This is a denae but anxious 76 year old woman who has continued to demonstrate symptoms of disease progression with increasing symptom burden, weight loss, and functional decline. Given the current needs of both patient and , participated in shared decision making to proceed with hospice transition to meet her goal of a comfortable and respectul at home. Recommendations/Counseling Done: 1. Pain of neoplastic origin, currently with some improvement on the Fentanyl 37 mcg. Patient thin, replaced both patches and applied to upper right back where more subq fat seen. Given the distress of and patient's high risk of further obstructive symptoms would continue to work with the patches, change to 48 hours of finding end of dose failure. Has oxycodone 5 mg tabs, planning with next RX to write for 10 mg to decrease pill burden. 2. Nausea without vomiting. This occurs mostly when patient being "encouraged" to eat/drink. Reviewed that natural dying process is with less intake, that we allow to eat for comfort, not to force. Acknowledged Jayesh difficulty with "concept of dehydration" but reviewed that is natures way in the dying process. Has ondansetron, using sporadically with success. Has cannabis drops, patient does not perceive any feelings of support. Have been using just "baby" doses, encouraged to try larger dose to determine if going to be therapeutically of benefit. 3. Colostomy output. Inst. to restart Miralax at 1/2 capful and monitor. I am concerned will obstruct again, has portacath if needed for transiton to IV, hopefully Fentanyl will be enough. Patient has strong aversion to pills. 4. Advanced care planning. Counseling regarding anticipatory guidance, current decline, recommendation and facilitation to hospice team. POLST in place as DNAR , did not redo form given the patient's difficulty and tendency to perseverate. Equipment ordered for tomorrow, and coordination with hospice accomplished. Updated PCP Denice Campos PA-C and will send notice to Dr. Aly oncologist. Time Spent: Time spent 75 minutes with greater than 50 % done in counseling and coordination of care follow up with HH, and anticipatory guidance.
== END 2016-10-11 09:31 | disposition home or self-care (01) ==
LOC: PC 09:30
PROVIDERS: ATTEND Nurse Practitioner Adult Health
DX: Z51.5 Encounter for palliative care (principal); G89.3 Neoplasm related pain (acute) (chronic); R11.0 Nausea; C54.1 Malignant neoplasm of endometrium; C78.00 Secondary malignant neoplasm of unspecified lung; I89.0 Lymphedema, not elsewhere classified; F32.9 Major depressive disorder, single episode, unspecified; F41.9 Anxiety disorder, unspecified; Z93.3 Colostomy status; Z79.891 Long term (current) use of opiate analgesic; Z95.828 Presence of other vascular implants and grafts; Z74.01 Bed confinement status; Z66 Do not resuscitate
CPT/HCPCS: 99350